=== PATIENT | female | born 1950 | race Caucasian/White ===

== ENCOUNTER 2022-01-17 07:04 | Day surgery (SDC) | payer OTHER, BC ==
[2022-01-17] MEDS ORDERED: Ringers Lactate 1,000 ML IV ONE (07:27)
[2022-01-17 07:46] VITALS: O2SAT 100
[2022-01-17] MEDS ORDERED: LIDOCAINE 1% MPF 5 ML VIAL ONE (08:29)
[2022-01-17] MEDS ORDERED: propofoL 200 MG/20 ML VIAL IV ONE (08:29)
--- NOTE | 2022-01-17 08:59 | ENDO RPT ---
[address], [address] COLONOSCOPY PROCEDURE REPORT EXAM DATE: 01/17/2022 PATIENT NAME: Luann Denney MR #: [id number] BIRTHDATE: 1950 ATTENDING: Raman Velásquez MD STATUS: outpatient MANAGER SMALL BUSINESS: Matheus Whitman CST and Isatu Peters RN INDICATIONS: The patient is a 71 yr old Female here for a colonoscopy due to personal history of colon polyps PROCEDURE PERFORMED: Colonoscopy with biopsy - cold polypectomy MEDICATIONS: Per Anesthesia. ESTIMATED BLOOD LOSS: None CONSENT: The patient understands the risks and benefits of the procedure and understands that these risks include, but are not limited to: sedation, allergic reaction, infection, perforation and/or bleeding. Alternative means of evaluation and treatment include, among others: physical exam, x-rays, and/or surgical intervention. The patient elects to proceed with this endoscopic procedure. DESCRIPTION OF PROCEDURE: During intra-op preparation period all mechanical medical equipment was checked for proper function. Hand hygiene and appropriate measures for infection prevention was taken. Procedure, possible complications, alternatives including, but not limited to possibility of bleeding, perforation, tear, infection, sepsis, need for surgery, need for blood transfusion, were explained to the patient. After the risks, benefits and alternatives of the procedure were thoroughly explained, Informed consent was verified, confirmed and timeout was successfully executed by the treatment team. The patient was placed in the left lateral position. A digital rectal exam was performed and revealed external hemorrhoids. After appropriate level of anesthesia, the scope was passed. The EC-[id number] ([id number]) endoscope was introduced through the anus and advanced to the cecum, which was identified by transillumination from the light source, the appendix, and the ileocecal valve. The quality of the prep was good. The instrument was then slowly withdrawn as the colon was fully examined. Scope withdrawal time was . COLON FINDINGS: Diverticula was found in the descending colon. The opening was medium sized. A polypectomy of two sessile polyps less than .3cm in size was performed using hot forceps at 60 and 80cm from anal verge. The resection was complete, the polyp tissue was completely retrieved and sent to histology. Retroflexed views revealed no abnormalities. The scope was then completely withdrawn from the patient and the procedure terminated. ADVERSE EVENTS: There were no complications. IMPRESSIONS: 1. Diverticula in the descending colon; polypectomy was performed in a piecemeal fashion using hot forceps 2. Sessile polyp 3. Internal hemorrhoids 4. External hemorrhoids RECOMMENDATIONS: 1. follow-up: primary MD 1 week(s) 2. await biopsy results 3. no seeds in diet 4. hemorrhoidal hygiene RECALL: for Colonoscopy, pending biopsy results. Raman Velásquez MD eSigned: Raman Velásquez MD 01/17/2022 8:59 AM cc: Leti Hung CPT CODES: ICD9 CODES: PATIENT NAME: Luann Denney MR#: [id number]
[2022-01-17 09:48] VITALS: BP 102/58; TEMP 97.1
== END 2022-01-17 09:32 | disposition home or self-care (01) ==
LOC: OR 07:04
PROVIDERS: ATTEND Surgery
PROC: 0DBN8ZX Excision of Sigmoid Colon, Via Natural or Artificial Opening Endoscopic, Diagnostic (ICD-10-PCS; principal; 2022-01-17 08:30)
DX: Z86.010 Personal history of colon polyps (principal); D12.5 Benign neoplasm of sigmoid colon; E03.9 Hypothyroidism, unspecified; Z88.6 Allergy status to analgesic agent; K64.8 Other hemorrhoids; K64.4 Residual hemorrhoidal skin tags; K57.30 Diverticulosis of large intestine without perforation or abscess without bleeding
CPT/HCPCS: 88305; 45384; J2704; J7120